=== PATIENT | female | born 1945 | race Caucasian/White ===

== ENCOUNTER 2018-01-22 16:38 | Inpatient (IN) | payer OTHER ==
[~2018-01-22] VITALS: Ht 152.4 cm; Wt 69.9 kg
--- NOTE | 2018-01-22 17:08 | PHYS DOC ---
Adult General HPI HPI Patient is a 72 year old female who presents to the ED for evaluation. Per EMS report pt arrived at [facility] yesterday and was "kicked out" pt denies any medical complaint. She is belligerent she is yelling. She refers to me as "little fucker" She is demanding that I get her an apartment. She admits to having no housing in . She was sent to [facility] from [facility]/ inpatient psych but is unable to provide any further insight into this. Review of Systems Review of Systems Patient refused to answer any of my ROS questions Current Medications Current Medications Current Medications Medications (Trade) Dose Ordered Sig/Denis Start Time Stop Time Status Last Admin Dose Admin Acetaminophen (Tylenol) 1,000 mg 1X ONCE 01/22/18 18:30 01/22/18 18:31 DC 01/22/18 18:26 1,000 MG Allergies Allergies Allergies Coded Allergies Type Severity Reaction Last Updated Verified No Known Drug Allergies 01/22/18 No Physical Exam Physical Exam Constitutional: Well developed, well nourished, HENT: Normocephalic, atraumatic, Eyes: PERRLA, Neck: Normal range of motion, no stridor. [] Cardiovascular:Heart rate regular rhythm, no murmur [] Lungs & Thorax: Bilateral breath sounds clear to auscultation [] Abdomen: Bowel sounds normal, soft, no tenderness, no masses, no pulsatile masses. [] Skin: Warm, dry, no erythema, no rash. [] Back: No tenderness, no CVA tenderness. [] Extremities: No tenderness, no cyanosis, no clubbing, ROM intact, no edema. [] Neurologic: Alert and oriented X 3, no focal deficits noted. [] Psychologic: Intermittently volatile and belligerent. Seems to have poor insight into consequences of choices. Current Patient Data Vital Signs Vital Signs Date Time Temp Pulse Resp B/P (MAP) Pulse Ox O2 Delivery O2 Flow Rate FiO2 01/22/18 18:00 76 20 158/102 (120) 96 Room Air 01/22/18 16:38 98.1 98.1 Lab Values Laboratory Tests Test 01/22/18 17:00 01/22/18 17:30 Urine Opiates Screen Neg (NEG) Urine Methadone Screen Neg (NEG) Urine Barbiturates Neg (NEG) Urine Phencyclidine Screen Neg (NEG) Urine Amphetamine/Methamphetamine Neg (NEG) Urine Benzodiazepines Screen Neg (NEG) Urine Cocaine Screen Neg (NEG) Urine Cannabinoids Screen Neg (NEG) Urine Ethyl Alcohol Neg (NEG) White Blood Count 9.3 x10^3/uL (4.0-11.0) Red Blood Count 3.84 x10^6/uL (3.50-5.40) Hemoglobin 11.9 g/dL (12.0-15.5) L Hematocrit 34.2 % (36.0-47.0) L Mean Corpuscular Volume 89 fL (79-100) Mean Corpuscular Hemoglobin 31 pg (25-35) Mean Corpuscular Hemoglobin Concent 35 g/dL (31-37) Red Cell Distribution Width 14.1 % (11.5-14.5) Platelet Count 287 x10^3/uL (140-400) Neutrophils (%) (Auto) 59 % (31-73) Lymphocytes (%) (Auto) 27 % (24-48) Monocytes (%) (Auto) 9 % (0-9) Eosinophils (%) (Auto) 4 % (0-3) H Basophils (%) (Auto) 1 % (0-3) Neutrophils # (Auto) 5.4 x10^3uL (1.8-7.7) Lymphocytes # (Auto) 2.5 x10^3/uL (1.0-4.8) Monocytes # (Auto) 0.9 x10^3/uL (0.0-1.1) Eosinophils # (Auto) 0.4 x10^3/uL (0.0-0.7) Basophils # (Auto) 0.1 x10^3/uL (0.0-0.2) Sodium Level 138 mmol/L (136-145) Potassium Level 3.5 mmol/L (3.5-5.1) Chloride Level 102 mmol/L (98-107) Carbon Dioxide Level 30 mmol/L (21-32) Anion Gap 6 (6-14) Blood Urea Nitrogen 29 mg/dL (7-20) H Creatinine 1.4 mg/dL (0.6-1.0) H Estimated GFR (Cockcroft-Gault) 36.9 BUN/Creatinine Ratio 21 (6-20) H Glucose Level 101 mg/dL (70-99) H Calcium Level 8.7 mg/dL (8.5-10.1) Total Bilirubin 0.2 mg/dL (0.2-1.0) Aspartate Amino Transferase (AST) 30 U/L (15-37) Alanine Aminotransferase (ALT) 48 U/L (14-59) Alkaline Phosphatase 84 U/L (46-116) Total Protein 6.9 g/dL (6.4-8.2) Albumin 3.2 g/dL (3.4-5.0) L Albumin/Globulin Ratio 0.9 (1.0-1.7) L Laboratory Tests 01/22/18 17:30 Laboratory Tests 01/22/18 17:30 EKG EKG [] Radiology/Procedures Radiology/Procedures [] Course & Med Decision Making Course & Med Decision Making Pertinent Labs and Imaging studies reviewed. (See chart for details) Pt evaluated in ED by Mildred with PAT team and Anisha with state evaluation. Pt difficult to determine clear disposition. She is alert and oriented x 3. She is intermittently confused and does not provide clear timeline as far as where she has lived in the past. She has no local resources and she denies having any significant resources in any other city. She was sent from [facility]/ to [facility]. On arrival there she was belligerent/non-compliant and refused to sign the admit paperwork. She was sent back to the ER. Pt has no medical complaints. She has been intermittently belligerent. She seems to have a component of splitting as she is polite with RN but refers to me as "little fucker". She has no medical reason for hospitalization. I spoke with [facility] and they are willing to have her back but she is refusing to go. Advised that I would need to discharge and she states that she will go to a residential. pt then demonstrated poor decision making when she was unable to answer questions regarding getting her clothes/belonging from the [place]. What she would do when she had to leave the residential tomorrow morning in the cold whether in her PJs. She is covering her eyes/ears in response to attempts to talkt o her. Mildred and Anisha evaluated the pt again. They will petition for involuntary placement. pt has very poor insight and is not safe to discharge to the streets/ residential. I feel that the pt has a waxing/waning capacity and questions whether she has the capacity to make decisions such as refusing to sign into a NH. Will admit pending evaluation by OSH for possible involuntary placement. Discussed with Dr. Mendoza who is agreeable to admission. Benny Disclaimer Benny Disclaimer This electronic medical record was generated, in whole or in part, using a voice recognition dictation system. Departure Departure Impression: Primary Impression: Mental health problem Additional Impression: Acute psychosis Disposition: ADMITTED INPATIENT Admitting Physician: Other Condition: GUARDED Additional Instructions: Thank you for coming to . Please repeat the attached handouts. Please follow-up with your primary care physician. Return to the ER if your symptoms worsen or you have any other concerns. Please follow-up with resources provided. Problem Qualifiers TYLER TERESA DO Jan 22, 2018 17:08
[2018-01-22 17:26] LABS: AMPHETAMINE/METHAMPHETAMINE NEG (NEG); BARBITURATES NEG (NEG); BENZODIAZEPINES NEG (NEG); CANNABINOIDS NEG (NEG); COCAINE NEG (NEG); METHADONE NEG (NEG); OPIATES NEG (NEG); PHENCYCLIDINE NEG (NEG)
[2018-01-22 17:39] LABS: BASO # 0.1 x10^3/uL (0.0-0.2); BASO % 1 % (0-3); EOS # 0.4 x10^3/uL (0.0-0.7); EOS % 4 % (0-3); HEMATOCRIT 34.2 % (36.0-47.0); HEMOGLOBIN 11.9 g/dL (12.0-15.5); LYMPH # 2.5 x10^3/uL (1.0-4.8); LYMPH % 27 % (24-48); MEAN CORPUSCULAR HEMOGLOBIN 31 pg (25-35); MEAN CORPUSCULAR HGB CONC 35 g/dL (31-37); MEAN CORPUSCULAR VOLUME 89 fL (79-100); MONO # 0.9 x10^3/uL (0.0-1.1); MONO % 9 % (0-9); NEUT # 5.4 x10^3uL (1.8-7.7); NEUT % 59 % (31-73); PLATELET COUNT 287 x10^3/uL (140-400); RED BLOOD COUNT 3.84 x10^6/uL (3.50-5.40); RED CELL DISTRIBUTION WIDTH 14.1 % (11.5-14.5); WHITE BLOOD COUNT 9.3 x10^3/uL (4.0-11.0)
[2018-01-22 17:49] LABS: CALCIUM 8.7 mg/dL (8.5-10.1); CREATININE 1.4 mg/dL (0.6-1.0); GFR 36.9; POTASSIUM 3.5 mmol/L (3.5-5.1)
[2018-01-22 17:57] LABS: ALBUMIN 3.2 g/dL (3.4-5.0); ALBUMIN/GLOBULIN RATIO 0.9 (1.0-1.7); TOTAL BILIRUBIN 0.2 mg/dL (0.2-1.0); TOTAL PROTEIN 6.9 g/dL (6.4-8.2)
[2018-01-22] MEDS ORDERED: ACETAMINOPHEN 500 MG TABLET PO ONE (18:30)
[2018-01-22] MEDS ORDERED: ACETAMINOPHEN 325 MG TABLET. PO ONE (23:15)
[2018-01-23 00:27] VITALS: BP 211/109
[2018-01-23] MEDS ORDERED: ARIP10TA9 PO (00:44)
[2018-01-23] MEDS ORDERED: BENZ1TAB5 PO (00:52)
[2018-01-23] MEDS ORDERED: LEVO50TA5 PO (00:52)
[2018-01-23] MEDS ORDERED: ASCO500T3 PO (00:52)
[2018-01-23] MEDS ORDERED: MAGN2400 PO (00:52)
[2018-01-23] MEDS ORDERED: MULT-460 PO (00:52)
[2018-01-23] MEDS ORDERED: LAMO200T3 PO (00:52)
[2018-01-23] MEDS ORDERED: LISI-338 PO (00:52)
[2018-01-23] MEDS ORDERED: ARIP2TAB3 PO (00:52)
[2018-01-23] MEDS ORDERED: OMEP40CA5 PO (00:52)
[2018-01-23] MEDS: ACETAMINOPHEN 325 MG TABLET. PO PRN ×3 (05:52→19:06)
--- NOTE | 2018-01-23 11:38 | PDOC1 ---
History and Physical Date of Admission Date of Admission DATE: 01/23/18 TIME: 11:37 Identification/Chief Complaint Chief Complaint 72 year old female who presents to the ED for evaluation. Per EMS report pt arrived at [facility] yesterday and was "kicked out" pt denies any medical complaint. She is belligerent she is yelling. She refers to me as "little fucker" She is demanding that I get her an apartment. She admits to having no housing in . She was sent to [facility] from [facility] inpatient psych Pt evaluated in ED by Mildred with PAT team and Anisha with state evaluation. Pt difficult to determine clear disposition. She is intermittently confused and does not provide clear timeline as far as where she has lived in the past. has no local resources and she denies having any significant resources in any other city. She was sent from [facility] to [facility] alf. On arrival there she was belligerent/non-compliant and refused to sign the admit paperwork. She was sent back to the ER. Pt has no medical complaints. She WAS belligerent NOW IS CALM . History of Present Illness History of Present Illness Per EMS report pt arrived at [facility] yesterday and was "kicked out" pt denies any medical complaint. She was belligerent she is yelling. prison refused to admit her yesterday Family History Family History: Hypertension Social History Smoke: No ALCOHOL: none Drugs: None Current Problem List Problem List Problems Medical Problems: (1) Acute psychosis Status: Acute (2) Mental health problem Status: Acute Current Medications Current Medications Current Medications Acetaminophen (Tylenol) 1,000 mg 1X ONCE PO Last administered on 01/22/18at 18: 26; Start 01/22/18 at 18:30; Stop 01/22/18 at 18:31; Status DC Acetaminophen (Tylenol) 650 mg 1X ONCE PO Last administered on 01/22/18at 23:20 ; Start 01/22/18 at 23:15; Stop 01/22/18 at 23:16; Status DC Influenza Virus Vaccine (Afluria Trivalent [id number] Syringe) 0.5 ml ONCE ONCE VAX IM Last administered on 01/23/18at 11:26; Start 01/23/18 at 09:00; Stop 01/23/18 at 09:01; Status DC Acetaminophen (Tylenol) 650 mg PRN Q6HRS PRN PO MILD PAIN / TEMP Last administered on 01/23/18at 11:23; Start 01/23/18 at 05:45 Active Scripts Active Reported Multiple Vitamin (Multivitamin With Minerals) 1 Each Tablet 1 Each PO DAILY Omeprazole 40 Mg Capsule.dr 1 Cap PO DAILY Milk Of Magnesia (Magnesium Hydroxide) 2,400 Mg/10 Ml Oral.susp 1,200 Mg PO PRN DAILY PRN Lisinopril 5 Mg Tablet 1 Tab PO DAILY Levothyroxine Sodium 50 Mcg Tablet 1 Tab PO DAILY Lamictal (Lamotrigine) 200 Mg Tablet 1 Tab PO DAILY Benztropine Mesylate 1 Mg Tablet 1 Mg PO DAILY Ascorbic Acid 500 Mg Tablet 1,000 Mg PO DAILY Abilify (Aripiprazole) 2 Mg Tablet 2 Mg PO DAILY Abilify (Aripiprazole) 10 Mg Tablet 10 Mg PO DAILY Allergies Allergies: Coded Allergies: No Known Drug Allergies (Unverified , 01/22/18) ROS General: No: Chills, Night Sweats, Fatigue, Malaise, Appetite, Other PSYCHOLOGICAL ROS: YES: Behavioral Disorder, Depression Eyes: No Blurry vision, No Decreased vision, No Double vision, No Dry eyes, No Excessive tearing, No Eye Pain, No Itchy Eyes, No Loss of vision, No Photophobia , No Scotomata, No Uses contacts, No Uses glasses, No Other HEENT: No: Heacaches, Visual Changes, Hearing change, Nasal congestion, Nasal discharge, Oral lesions, Sinus pain, Sore Throat, Epistaxis, Sneezing, Snoring, Tinnitus, Vertigo, Vocal changes, Other ALLERGY AND IMMUNOLOGY: No: Hives, Insect Bite Sensitivity, Itchy/Watery Eyes, Nasal Congestion, Post Nasal Drip, Seasonal Allergies, Other Breast: No New/Changing Breast Lumps, No Nipple changes, No Nipple discharge, No Other Cardiovascular: No Chest Pain, No Palpitations, No Orthopnea, No Paroxysmal Noc. Dyspnea, No Edema, No Lt Headedness, No Other Gastrointestinal: No Nausea, No Vomiting, No Abdominal Pain, No Diarrhea, No Constipation, No Melena, No Hematochezia, No Other Genitourinary: No Dysuria, No Frequency, No Incontinence, No Hematuria, No Retention, No Discharge, No Urgency, No Pain, No Flank Pain, No Other, No , No , No , No , No , No , No Musculoskeletal: Yes Joint Stiffness Neurological: Yes Behavorial Changes, Yes Confusion Vitals Vitals Vital Signs Date Time Temp Pulse Resp B/P (MAP) Pulse Ox O2 Delivery O2 Flow Rate FiO2 01/23/18 09:00 98.1 101 20 93 Room Air 98.1 Labs Labs Laboratory Tests Test 01/22/18 17:00 01/22/18 17:30 Urine Opiates Screen Neg (NEG) Urine Methadone Screen Neg (NEG) Urine Barbiturates Neg (NEG) Urine Phencyclidine Screen Neg (NEG) Urine Amphetamine/Methamphetamine Neg (NEG) Urine Benzodiazepines Screen Neg (NEG) Urine Cocaine Screen Neg (NEG) Urine Cannabinoids Screen Neg (NEG) Urine Ethyl Alcohol Neg (NEG) White Blood Count 9.3 x10^3/uL (4.0-11.0) Red Blood Count 3.84 x10^6/uL (3.50-5.40) Hemoglobin 11.9 g/dL (12.0-15.5) Hematocrit 34.2 % (36.0-47.0) Mean Corpuscular Volume 89 fL (79-100) Mean Corpuscular Hemoglobin 31 pg (25-35) Mean Corpuscular Hemoglobin Concent 35 g/dL (31-37) Red Cell Distribution Width 14.1 % (11.5-14.5) Platelet Count 287 x10^3/uL (140-400) Neutrophils (%) (Auto) 59 % (31-73) Lymphocytes (%) (Auto) 27 % (24-48) Monocytes (%) (Auto) 9 % (0-9) Eosinophils (%) (Auto) 4 % (0-3) Basophils (%) (Auto) 1 % (0-3) Neutrophils # (Auto) 5.4 x10^3uL (1.8-7.7) Lymphocytes # (Auto) 2.5 x10^3/uL (1.0-4.8) Monocytes # (Auto) 0.9 x10^3/uL (0.0-1.1) Eosinophils # (Auto) 0.4 x10^3/uL (0.0-0.7) Basophils # (Auto) 0.1 x10^3/uL (0.0-0.2) Sodium Level 138 mmol/L (136-145) Potassium Level 3.5 mmol/L (3.5-5.1) Chloride Level 102 mmol/L (98-107) Carbon Dioxide Level 30 mmol/L (21-32) Anion Gap 6 (6-14) Blood Urea Nitrogen 29 mg/dL (7-20) Creatinine 1.4 mg/dL (0.6-1.0) Estimated GFR (Cockcroft-Gault) 36.9 BUN/Creatinine Ratio 21 (6-20) Glucose Level 101 mg/dL (70-99) Calcium Level 8.7 mg/dL (8.5-10.1) Total Bilirubin 0.2 mg/dL (0.2-1.0) Aspartate Amino Transf (AST/SGOT) 30 U/L (15-37) Alanine Aminotransferase (ALT/SGPT) 48 U/L (14-59) Alkaline Phosphatase 84 U/L (46-116) Total Protein 6.9 g/dL (6.4-8.2) Albumin 3.2 g/dL (3.4-5.0) Albumin/Globulin Ratio 0.9 (1.0-1.7) Laboratory Tests Test 01/22/18 17:00 01/22/18 17:30 Urine Opiates Screen Neg (NEG) Urine Methadone Screen Neg (NEG) Urine Barbiturates Neg (NEG) Urine Phencyclidine Screen Neg (NEG) Urine Amphetamine/Methamphetamine Neg (NEG) Urine Benzodiazepines Screen Neg (NEG) Urine Cocaine Screen Neg (NEG) Urine Cannabinoids Screen Neg (NEG) Urine Ethyl Alcohol Neg (NEG) White Blood Count 9.3 x10^3/uL (4.0-11.0) Red Blood Count 3.84 x10^6/uL (3.50-5.40) Hemoglobin 11.9 g/dL (12.0-15.5) Hematocrit 34.2 % (36.0-47.0) Mean Corpuscular Volume 89 fL (79-100) Mean Corpuscular Hemoglobin 31 pg (25-35) Mean Corpuscular Hemoglobin Concent 35 g/dL (31-37) Red Cell Distribution Width 14.1 % (11.5-14.5) Platelet Count 287 x10^3/uL (140-400) Neutrophils (%) (Auto) 59 % (31-73) Lymphocytes (%) (Auto) 27 % (24-48) Monocytes (%) (Auto) 9 % (0-9) Eosinophils (%) (Auto) 4 % (0-3) Basophils (%) (Auto) 1 % (0-3) Neutrophils # (Auto) 5.4 x10^3uL (1.8-7.7) Lymphocytes # (Auto) 2.5 x10^3/uL (1.0-4.8) Monocytes # (Auto) 0.9 x10^3/uL (0.0-1.1) Eosinophils # (Auto) 0.4 x10^3/uL (0.0-0.7) Basophils # (Auto) 0.1 x10^3/uL (0.0-0.2) Sodium Level 138 mmol/L (136-145) Potassium Level 3.5 mmol/L (3.5-5.1) Chloride Level 102 mmol/L (98-107) Carbon Dioxide Level 30 mmol/L (21-32) Anion Gap 6 (6-14) Blood Urea Nitrogen 29 mg/dL (7-20) Creatinine 1.4 mg/dL (0.6-1.0) Estimated GFR (Cockcroft-Gault) 36.9 BUN/Creatinine Ratio 21 (6-20) Glucose Level 101 mg/dL (70-99) Calcium Level 8.7 mg/dL (8.5-10.1) Total Bilirubin 0.2 mg/dL (0.2-1.0) Aspartate Amino Transf (AST/SGOT) 30 U/L (15-37) Alanine Aminotransferase (ALT/SGPT) 48 U/L (14-59) Alkaline Phosphatase 84 U/L (46-116) Total Protein 6.9 g/dL (6.4-8.2) Albumin 3.2 g/dL (3.4-5.0) Albumin/Globulin Ratio 0.9 (1.0-1.7) VTE Prophylaxis Ordered VTE Prophylaxis Devices: Yes VTE Pharmacological Prophylaxi: Yes Assessment/Plan Assessment/Plan IMPRESSION 1. ACUTE ON CHRONIC PSYCHOSIS 2. NONCOMPLIANCE 3. SOCIAL PLACEMENT NEEDS, DIFFICULT PLAN CASE MGT HOME MEDS CT HEAD T4/TSH LAURY LOMBARDI MD Jan 23, 2018 11:37
[2018-01-23] MEDS ORDERED: MAGNESIUM HYDROXIDE 2,400 MG/30 ML ORAL.SUSP. PO PRN (17:15)
[2018-01-24] MEDS: ACETAMINOPHEN 325 MG TABLET. PO PRN ×3 (02:43→18:23)
[2018-01-24] MEDS: LEVOTHYROXINE 50 MCG TABLET PO SCH (05:13)
[2018-01-24 06:32] LABS: BASO % 1 % (0-3); EOS # 0.4 x10^3/uL (0.0-0.7); EOS % 4 % (0-3); HEMATOCRIT 38.5 % (36.0-47.0); HEMOGLOBIN 13.4 g/dL (12.0-15.5); LYMPH # 2.2 x10^3/uL (1.0-4.8); LYMPH % 23 % (24-48); MEAN CORPUSCULAR HEMOGLOBIN 31 pg (25-35); MEAN CORPUSCULAR HGB CONC 35 g/dL (31-37); MEAN CORPUSCULAR VOLUME 89 fL (79-100); MONO # 0.7 x10^3/uL (0.0-1.1); MONO % 7 % (0-9); NEUT # 6.5 x10^3uL (1.8-7.7); NEUT % 66 % (31-73); PLATELET COUNT 344 x10^3/uL (140-400); RED BLOOD COUNT 4.32 x10^6/uL (3.50-5.40); RED CELL DISTRIBUTION WIDTH 14.2 % (11.5-14.5); WHITE BLOOD COUNT 9.8 x10^3/uL (4.0-11.0)
[2018-01-24 06:46] LABS: ALBUMIN 3.6 g/dL (3.4-5.0); ALBUMIN/GLOBULIN RATIO 0.8 (1.0-1.7); CALCIUM 9.4 mg/dL (8.5-10.1); CREATININE 1.4 mg/dL (0.6-1.0); GFR 36.9; POTASSIUM 3.4 mmol/L (3.5-5.1); TOTAL BILIRUBIN 0.4 mg/dL (0.2-1.0); TOTAL PROTEIN 7.9 g/dL (6.4-8.2)
--- NOTE | 2018-01-24 08:40 | PDOC ---
PROGRESS NOTES History of Present Illness History of Present Illness Assessment/Plan Assessment/Plan IMPRESSION 1. ACUTE ON CHRONIC PSYCHOSIS 2. NONCOMPLIANCE 3. SOCIAL PLACEMENT NEEDS, DIFFICULT PLAN CASE MGT HOME MEDS CT HEAD T4/TSH Vitals Vitals Vital Signs Date Time Temp Pulse Resp B/P (MAP) Pulse Ox O2 Delivery O2 Flow Rate FiO2 01/24/18 07:00 98.0 116 18 92 Room Air 98.0 Physical Exam Physical Exam HENT: Normocephalic, atraumatic, Eyes: PERRLA, Neck: Normal range of motion, no stridor. [] Cardiovascular:Heart rate regular rhythm, no murmur [] Lungs & Thorax: Bilateral breath sounds clear to auscultation [] Abdomen: Bowel sounds normal, soft, no tenderness, no masses, no pulsatile masses. [] Skin: Warm, dry, no erythema, no rash. [] Back: No tenderness, no CVA tenderness. [] Extremities: No tenderness, no cyanosis, no clubbing, ROM intact, no edema. [] Neurologic: Alert and oriented X 3, no focal deficits noted. [] Psychologic: poor insight, calm with my exam. General: Cooperative, No acute distress Heart: Regular rate Lungs: Clear Abdomen: Normal bowel sounds, Soft, No hepatosplenomegaly Extremities: No cyanosis, No edema Labs LABS Laboratory Tests Test 01/24/18 06:00 White Blood Count 9.8 x10^3/uL (4.0-11.0) Red Blood Count 4.32 x10^6/uL (3.50-5.40) Hemoglobin 13.4 g/dL (12.0-15.5) Hematocrit 38.5 % (36.0-47.0) Mean Corpuscular Volume 89 fL (79-100) Mean Corpuscular Hemoglobin 31 pg (25-35) Mean Corpuscular Hemoglobin Concent 35 g/dL (31-37) Red Cell Distribution Width 14.2 % (11.5-14.5) Platelet Count 344 x10^3/uL (140-400) Neutrophils (%) (Auto) 66 % (31-73) Lymphocytes (%) (Auto) 23 % (24-48) Monocytes (%) (Auto) 7 % (0-9) Eosinophils (%) (Auto) 4 % (0-3) Basophils (%) (Auto) 1 % (0-3) Neutrophils # (Auto) 6.5 x10^3uL (1.8-7.7) Lymphocytes # (Auto) 2.2 x10^3/uL (1.0-4.8) Monocytes # (Auto) 0.7 x10^3/uL (0.0-1.1) Eosinophils # (Auto) 0.4 x10^3/uL (0.0-0.7) Basophils # (Auto) 0.0 x10^3/uL (0.0-0.2) Sodium Level 138 mmol/L (136-145) Potassium Level 3.4 mmol/L (3.5-5.1) Chloride Level 99 mmol/L (98-107) Carbon Dioxide Level 26 mmol/L (21-32) Anion Gap 13 (6-14) Blood Urea Nitrogen 25 mg/dL (7-20) Creatinine 1.4 mg/dL (0.6-1.0) Estimated GFR (Cockcroft-Gault) 36.9 BUN/Creatinine Ratio 18 (6-20) Glucose Level 121 mg/dL (70-99) Calcium Level 9.4 mg/dL (8.5-10.1) Total Bilirubin 0.4 mg/dL (0.2-1.0) Aspartate Amino Transf (AST/SGOT) 52 U/L (15-37) Alanine Aminotransferase (ALT/SGPT) 84 U/L (14-59) Alkaline Phosphatase 97 U/L (46-116) Total Protein 7.9 g/dL (6.4-8.2) Albumin 3.6 g/dL (3.4-5.0) Albumin/Globulin Ratio 0.8 (1.0-1.7) Assessment and Plan Assessmemt and Plan Problems Medical Problems: (1) Acute psychosis Status: Acute (2) Mental health problem Status: Acute Comment Review of Relevant I have reviewed the following items khushbu (where applicable) has been applied. Labs Laboratory Tests Test 01/22/18 17:00 01/22/18 17:30 01/24/18 06:00 Urine Opiates Screen Neg (NEG) Urine Methadone Screen Neg (NEG) Urine Barbiturates Neg (NEG) Urine Phencyclidine Screen Neg (NEG) Urine Amphetamine/Methamphetamine Neg (NEG) Urine Benzodiazepines Screen Neg (NEG) Urine Cocaine Screen Neg (NEG) Urine Cannabinoids Screen Neg (NEG) Urine Ethyl Alcohol Neg (NEG) White Blood Count 9.3 x10^3/uL (4.0-11.0) 9.8 x10^3/uL (4.0-11.0) Red Blood Count 3.84 x10^6/uL (3.50-5.40) 4.32 x10^6/uL (3.50-5.40) Hemoglobin 11.9 g/dL (12.0-15.5) 13.4 g/dL (12.0-15.5) Hematocrit 34.2 % (36.0-47.0) 38.5 % (36.0-47.0) Mean Corpuscular Volume 89 fL (79-100) 89 fL (79-100) Mean Corpuscular Hemoglobin 31 pg (25-35) 31 pg (25-35) Mean Corpuscular Hemoglobin Concent 35 g/dL (31-37) 35 g/dL (31-37) Red Cell Distribution Width 14.1 % (11.5-14.5) 14.2 % (11.5-14.5) Platelet Count 287 x10^3/uL (140-400) 344 x10^3/uL (140-400) Neutrophils (%) (Auto) 59 % (31-73) 66 % (31-73) Lymphocytes (%) (Auto) 27 % (24-48) 23 % (24-48) Monocytes (%) (Auto) 9 % (0-9) 7 % (0-9) Eosinophils (%) (Auto) 4 % (0-3) 4 % (0-3) Basophils (%) (Auto) 1 % (0-3) 1 % (0-3) Neutrophils # (Auto) 5.4 x10^3uL (1.8-7.7) 6.5 x10^3uL (1.8-7.7) Lymphocytes # (Auto) 2.5 x10^3/uL (1.0-4.8) 2.2 x10^3/uL (1.0-4.8) Monocytes # (Auto) 0.9 x10^3/uL (0.0-1.1) 0.7 x10^3/uL (0.0-1.1) Eosinophils # (Auto) 0.4 x10^3/uL (0.0-0.7) 0.4 x10^3/uL (0.0-0.7) Basophils # (Auto) 0.1 x10^3/uL (0.0-0.2) 0.0 x10^3/uL (0.0-0.2) Sodium Level 138 mmol/L (136-145) 138 mmol/L (136-145) Potassium Level 3.5 mmol/L (3.5-5.1) 3.4 mmol/L (3.5-5.1) Chloride Level 102 mmol/L (98-107) 99 mmol/L (98-107) Carbon Dioxide Level 30 mmol/L (21-32) 26 mmol/L (21-32) Anion Gap 6 (6-14) 13 (6-14) Blood Urea Nitrogen 29 mg/dL (7-20) 25 mg/dL (7-20) Creatinine 1.4 mg/dL (0.6-1.0) 1.4 mg/dL (0.6-1.0) Estimated GFR (Cockcroft-Gault) 36.9 36.9 BUN/Creatinine Ratio 21 (6-20) 18 (6-20) Glucose Level 101 mg/dL (70-99) 121 mg/dL (70-99) Calcium Level 8.7 mg/dL (8.5-10.1) 9.4 mg/dL (8.5-10.1) Total Bilirubin 0.2 mg/dL (0.2-1.0) 0.4 mg/dL (0.2-1.0) Aspartate Amino Transf (AST/SGOT) 30 U/L (15-37) 52 U/L (15-37) Alanine Aminotransferase (ALT/SGPT) 48 U/L (14-59) 84 U/L (14-59) Alkaline Phosphatase 84 U/L (46-116) 97 U/L (46-116) Total Protein 6.9 g/dL (6.4-8.2) 7.9 g/dL (6.4-8.2) Albumin 3.2 g/dL (3.4-5.0) 3.6 g/dL (3.4-5.0) Albumin/Globulin Ratio 0.9 (1.0-1.7) 0.8 (1.0-1.7) Thyroid Stimulating Hormone (TSH) 1.440 uIU/mL (0.358-3.74) Free Thyroxine 1.24 ng/dL (0.76-1.46) Laboratory Tests Test 01/24/18 06:00 White Blood Count 9.8 x10^3/uL (4.0-11.0) Red Blood Count 4.32 x10^6/uL (3.50-5.40) Hemoglobin 13.4 g/dL (12.0-15.5) Hematocrit 38.5 % (36.0-47.0) Mean Corpuscular Volume 89 fL (79-100) Mean Corpuscular Hemoglobin 31 pg (25-35) Mean Corpuscular Hemoglobin Concent 35 g/dL (31-37) Red Cell Distribution Width 14.2 % (11.5-14.5) Platelet Count 344 x10^3/uL (140-400) Neutrophils (%) (Auto) 66 % (31-73) Lymphocytes (%) (Auto) 23 % (24-48) Monocytes (%) (Auto) 7 % (0-9) Eosinophils (%) (Auto) 4 % (0-3) Basophils (%) (Auto) 1 % (0-3) Neutrophils # (Auto) 6.5 x10^3uL (1.8-7.7) Lymphocytes # (Auto) 2.2 x10^3/uL (1.0-4.8) Monocytes # (Auto) 0.7 x10^3/uL (0.0-1.1) Eosinophils # (Auto) 0.4 x10^3/uL (0.0-0.7) Basophils # (Auto) 0.0 x10^3/uL (0.0-0.2) Sodium Level 138 mmol/L (136-145) Potassium Level 3.4 mmol/L (3.5-5.1) Chloride Level 99 mmol/L (98-107) Carbon Dioxide Level 26 mmol/L (21-32) Anion Gap 13 (6-14) Blood Urea Nitrogen 25 mg/dL (7-20) Creatinine 1.4 mg/dL (0.6-1.0) Estimated GFR (Cockcroft-Gault) 36.9 BUN/Creatinine Ratio 18 (6-20) Glucose Level 121 mg/dL (70-99) Calcium Level 9.4 mg/dL (8.5-10.1) Total Bilirubin 0.4 mg/dL (0.2-1.0) Aspartate Amino Transf (AST/SGOT) 52 U/L (15-37) Alanine Aminotransferase (ALT/SGPT) 84 U/L (14-59) Alkaline Phosphatase 97 U/L (46-116) Total Protein 7.9 g/dL (6.4-8.2) Albumin 3.6 g/dL (3.4-5.0) Albumin/Globulin Ratio 0.8 (1.0-1.7) Medications Current Medications Acetaminophen (Tylenol) 1,000 mg 1X ONCE PO Last administered on 01/22/18at 18: 26; Start 01/22/18 at 18:30; Stop 01/22/18 at 18:31; Status DC Acetaminophen (Tylenol) 650 mg 1X ONCE PO Last administered on 01/22/18at 23:20 ; Start 01/22/18 at 23:15; Stop 01/22/18 at 23:16; Status DC Influenza Virus Vaccine (Afluria Trivalent [id number] Syringe) 0.5 ml ONCE ONCE VAX IM Last administered on 01/23/18at 11:26; Start 01/23/18 at 09:00; Stop 01/23/18 at 09:01; Status DC Acetaminophen (Tylenol) 650 mg PRN Q6HRS PRN PO MILD PAIN / TEMP Last administered on 01/24/18at 02:43; Start 01/23/18 at 05:45 Ascorbic Acid (Vitamin C) 1,000 mg DAILY PO ; Start 01/24/18 at 09:00 Aripiprazole (Abilify) 2 mg DAILY PO ; Start 01/24/18 at 09:00 Aripiprazole (Abilify) 10 mg DAILY PO ; Start 01/24/18 at 09:00 Benztropine Mesylate (Cogentin) 1 mg DAILY PO ; Start 01/24/18 at 09:00 Lamotrigine (LaMICtal) 200 mg DAILY PO ; Start 01/24/18 at 09:00 Levothyroxine Sodium (Synthroid) 50 mcg DAILY06 PO Last administered on at 05:13; Start 01/24/18 at 06:00 Lisinopril (Prinivil) 5 mg DAILY PO ; Start 01/24/18 at 09:00 Magnesium Hydroxide (Milk Of Magnesia) 2,400 mg PRN DAILY PRN PO CONSTIPATION; Start 01/23/18 at 17:15 Multivitamins (Thera M Plus) 1 tab DAILY PO ; Start 01/24/18 at 09:00 Pantoprazole Sodium (Protonix) 40 mg DAILYAC PO ; Start 01/24/18 at 07:30 Active Scripts Active Reported Multiple Vitamin (Multivitamin With Minerals) 1 Each Tablet 1 Each PO DAILY Omeprazole 40 Mg Capsule.dr 1 Cap PO DAILY Milk Of Magnesia (Magnesium Hydroxide) 2,400 Mg/10 Ml Oral.susp 1,200 Mg PO PRN DAILY PRN Lisinopril 5 Mg Tablet 1 Tab PO DAILY Levothyroxine Sodium 50 Mcg Tablet 1 Tab PO DAILY Lamictal (Lamotrigine) 200 Mg Tablet 1 Tab PO DAILY Benztropine Mesylate 1 Mg Tablet 1 Mg PO DAILY Ascorbic Acid 500 Mg Tablet 1,000 Mg PO DAILY Abilify (Aripiprazole) 2 Mg Tablet 2 Mg PO DAILY Abilify (Aripiprazole) 10 Mg Tablet 10 Mg PO DAILY Vitals/I & O Vital Sign - Last 24 Hours 01/23/18 01/23/18 01/23/18 01/24/18 09:00 19:00 20:00 03:00 Temp 98.1 98.4 97.9 98.1 98.4 97.9 Pulse 101 84 81 Resp 20 20 20 B/P (MAP) Pulse Ox 93 92 93 O2 Delivery Room Air Room Air Room Air Room Air 01/24/18 07:00 Temp 98.0 98.0 Pulse 116 Resp 18 B/P (MAP) Pulse Ox 92 O2 Delivery Room Air Intake and Output 01/23/18 01/23/18 01/24/18 15:00 23:00 07:00 Intake Total 120 ml 1300 ml 700 ml Balance 120 ml 1300 ml 700 ml LAURY LOMBARDI MD Jan 24, 2018 08:40
[2018-01-24] MEDS: lamoTRIgine 100 MG TABLET. PO SCH (09:00)
[2018-01-24] MEDS: MULTIVITAMIN with MINERAL TABLET. PO SCH (09:00)
[2018-01-24] MEDS: BENZTROPINE MESYLATE 1 MG TABLET. PO SCH (09:00)
[2018-01-24] MEDS: PANTOPRAZOLE 40 MG TABLET.DR. PO SCH (09:34)
[2018-01-24] MEDS: ARIPiprazole 5 MG TABLET PO SCH (09:36)
[2018-01-24] MEDS: ARIPiprazole 2 MG TABLET PO SCH (09:37)
[2018-01-24] MEDS: ASCORBIC ACID 500 MG TABLET PO SCH (09:37)
[2018-01-24] MEDS: LISINOPRIL 5 MG TABLET. PO SCH (09:39)
--- NOTE | 2018-01-24 11:16 | RAD ---
EXAM: CHEST 1 VIEW History: Chest pain COMPARISON: None available. TECHNIQUE: Single portable radiograph of the chest FINDINGS: The cardiac silhouette is unremarkable. The lungs are clear bilaterally. The costophrenic sulci are clear and well demarcated. IMPRESSION: No radiographic evidence of an acute cardiopulmonary process. Electronically signed by: Rogelio Dubose MD (01/24/2018 11:13 AM) [facility]
[2018-01-25] MEDS: ACETAMINOPHEN 325 MG TABLET. PO PRN ×2 (00:37→14:58)
[2018-01-25] MEDS: LEVOTHYROXINE 50 MCG TABLET PO SCH (06:45)
[2018-01-25] MEDS: BENZTROPINE MESYLATE 1 MG TABLET. PO SCH ×2 (09:00→09:16)
[2018-01-25] MEDS: lamoTRIgine 100 MG TABLET. PO SCH ×2 (09:00→09:17)
[2018-01-25] MEDS: LISINOPRIL 5 MG TABLET. PO SCH (09:00)
[2018-01-25] MEDS: MULTIVITAMIN with MINERAL TABLET. PO SCH ×2 (09:00→09:17)
[2018-01-25] MEDS: ASCORBIC ACID 500 MG TABLET PO SCH (09:16)
[2018-01-25] MEDS: PANTOPRAZOLE 40 MG TABLET.DR. PO SCH (09:17)
--- NOTE | 2018-01-25 09:19 | PDOC ---
PROGRESS NOTES History of Present Illness History of Present Illness Assessment/Plan Assessment/Plan IMPRESSION 1. ACUTE ON CHRONIC PSYCHOSIS 2. NONCOMPLIANCE 3. SOCIAL PLACEMENT NEEDS, DIFFICULT 4. HYPOKALEMIA, ON REPLACEMENT PLAN CASE MGT HOME MEDS CT HEAD PENDING T4/TSH SQ LOVENOX DVT PROPHYLAXIS Vitals Vitals Vital Signs Date Time Temp Pulse Resp B/P (MAP) Pulse Ox O2 Delivery O2 Flow Rate FiO2 01/24/18 20:00 Room Air 01/24/18 15:00 98.3 86 16 95 98.3 Physical Exam Physical Exam HENT: Normocephalic, atraumatic, Eyes: PERRLA, Neck: Normal range of motion, no stridor. [] Cardiovascular:Heart rate regular rhythm, no murmur [] Lungs & Thorax: Bilateral breath sounds clear to auscultation [] Abdomen: Bowel sounds normal, soft, no tenderness, no masses, no pulsatile masses. [] Skin: Warm, dry, no erythema, no rash. [] Back: No tenderness, no CVA tenderness. [] Extremities: No tenderness, no cyanosis, no clubbing, ROM intact, no edema. [] Neurologic: Alert and oriented X 3, no focal deficits noted. [] Psychologic: poor insight, calm with my exam. General: Alert, Cooperative, No acute distress Heart: Regular rate, Normal S1 Lungs: Clear Abdomen: Normal bowel sounds, Soft, No hepatosplenomegaly Extremities: No cyanosis, No edema, Normal pulses Skin: No significant lesion Assessment and Plan Assessmemt and Plan Problems Medical Problems: (1) Acute psychosis Status: Acute (2) Mental health problem Status: Acute Comment Review of Relevant I have reviewed the following items khushbu (where applicable) has been applied. Labs Laboratory Tests Test 01/24/18 06:00 White Blood Count 9.8 x10^3/uL (4.0-11.0) Red Blood Count 4.32 x10^6/uL (3.50-5.40) Hemoglobin 13.4 g/dL (12.0-15.5) Hematocrit 38.5 % (36.0-47.0) Mean Corpuscular Volume 89 fL (79-100) Mean Corpuscular Hemoglobin 31 pg (25-35) Mean Corpuscular Hemoglobin Concent 35 g/dL (31-37) Red Cell Distribution Width 14.2 % (11.5-14.5) Platelet Count 344 x10^3/uL (140-400) Neutrophils (%) (Auto) 66 % (31-73) Lymphocytes (%) (Auto) 23 % (24-48) Monocytes (%) (Auto) 7 % (0-9) Eosinophils (%) (Auto) 4 % (0-3) Basophils (%) (Auto) 1 % (0-3) Neutrophils # (Auto) 6.5 x10^3uL (1.8-7.7) Lymphocytes # (Auto) 2.2 x10^3/uL (1.0-4.8) Monocytes # (Auto) 0.7 x10^3/uL (0.0-1.1) Eosinophils # (Auto) 0.4 x10^3/uL (0.0-0.7) Basophils # (Auto) 0.0 x10^3/uL (0.0-0.2) Sodium Level 138 mmol/L (136-145) Potassium Level 3.4 mmol/L (3.5-5.1) Chloride Level 99 mmol/L (98-107) Carbon Dioxide Level 26 mmol/L (21-32) Anion Gap 13 (6-14) Blood Urea Nitrogen 25 mg/dL (7-20) Creatinine 1.4 mg/dL (0.6-1.0) Estimated GFR (Cockcroft-Gault) 36.9 BUN/Creatinine Ratio 18 (6-20) Glucose Level 121 mg/dL (70-99) Calcium Level 9.4 mg/dL (8.5-10.1) Total Bilirubin 0.4 mg/dL (0.2-1.0) Aspartate Amino Transf (AST/SGOT) 52 U/L (15-37) Alanine Aminotransferase (ALT/SGPT) 84 U/L (14-59) Alkaline Phosphatase 97 U/L (46-116) Total Protein 7.9 g/dL (6.4-8.2) Albumin 3.6 g/dL (3.4-5.0) Albumin/Globulin Ratio 0.8 (1.0-1.7) Medications Current Medications Acetaminophen (Tylenol) 1,000 mg 1X ONCE PO Last administered on 01/22/18at 18: 26; Start 01/22/18 at 18:30; Stop 01/22/18 at 18:31; Status DC Acetaminophen (Tylenol) 650 mg 1X ONCE PO Last administered on 01/22/18at 23:20 ; Start 01/22/18 at 23:15; Stop 01/22/18 at 23:16; Status DC Influenza Virus Vaccine (Afluria Trivalent [id number] Syringe) 0.5 ml ONCE ONCE VAX IM Last administered on 01/23/18at 11:26; Start 01/23/18 at 09:00; Stop 01/23/18 at 09:01; Status DC Acetaminophen (Tylenol) 650 mg PRN Q6HRS PRN PO MILD PAIN / TEMP Last administered on 01/25/18at 00:37; Start 01/23/18 at 05:45 Ascorbic Acid (Vitamin C) 1,000 mg DAILY PO Last administered on 01/25/18 09: 16; Start 01/24/18 at 09:00 Aripiprazole (Abilify) 2 mg DAILY PO Last administered on 01/24/18at 09:37; Start 01/24/18 at 09:00 Aripiprazole (Abilify) 10 mg DAILY PO Last administered on 01/24/18at 09:36; Start 01/24/18 at 09:00 Benztropine Mesylate (Cogentin) 1 mg DAILY PO Last administered on 01/25/18 09 :16; Start 01/24/18 at 09:00 Lamotrigine (LaMICtal) 200 mg DAILY PO Last administered on 01/25/18 09:17; Start 01/24/18 at 09:00 Levothyroxine Sodium (Synthroid) 50 mcg DAILY06 PO Last administered on at 06:45; Start 01/24/18 at 06:00 Lisinopril (Prinivil) 5 mg DAILY PO Last administered on 01/24/18at 09:39; Start 01/24/18 at 09:00 Magnesium Hydroxide (Milk Of Magnesia) 2,400 mg PRN DAILY PRN PO CONSTIPATION; Start 01/23/18 at 17:15 Multivitamins (Thera M Plus) 1 tab DAILY PO Last administered on 01/25/18 09: 17; Start 01/24/18 at 09:00 Pantoprazole Sodium (Protonix) 40 mg DAILYAC PO Last administered on 11/4/18at 09:17; Start 01/24/18 at 07:30 Active Scripts Active Reported Multiple Vitamin (Multivitamin With Minerals) 1 Each Tablet 1 Each PO DAILY Omeprazole 40 Mg Capsule.dr 1 Cap PO DAILY Milk Of Magnesia (Magnesium Hydroxide) 2,400 Mg/10 Ml Oral.susp 1,200 Mg PO PRN DAILY PRN Lisinopril 5 Mg Tablet 1 Tab PO DAILY Levothyroxine Sodium 50 Mcg Tablet 1 Tab PO DAILY Lamictal (Lamotrigine) 200 Mg Tablet 1 Tab PO DAILY Benztropine Mesylate 1 Mg Tablet 1 Mg PO DAILY Ascorbic Acid 500 Mg Tablet 1,000 Mg PO DAILY Abilify (Aripiprazole) 2 Mg Tablet 2 Mg PO DAILY Abilify (Aripiprazole) 10 Mg Tablet 10 Mg PO DAILY Vitals/I & O Vital Sign - Last 24 Hours 01/24/18 01/24/18 01/24/18 01/24/18 09:39 11:00 15:00 20:00 Temp 98.6 98.3 98.6 98.3 Pulse 116 100 86 Resp 18 16 B/P (MAP) 211/109 Pulse Ox 93 95 O2 Delivery Room Air Room Air Room Air Intake and Output 01/24/18 01/24/18 01/25/18 15:00 23:00 07:00 Intake Total 380 ml 240 ml Output Total 0 ml Balance 380 ml 240 ml 0 ml LAURY LOMBARDI MD Jan 25, 2018 09:19
[2018-01-25] MEDS: ARIPiprazole 5 MG TABLET PO SCH (09:25)
[2018-01-25] MEDS: ARIPiprazole 2 MG TABLET PO SCH (09:25)
[2018-01-25] MEDS ORDERED: POTASSIUM CHLORIDE 20 MEQ TABLET.ER. PO ONE (16:00)
[2018-01-26] MEDS: LEVOTHYROXINE 50 MCG TABLET PO SCH (05:02)
[2018-01-26] MEDS: ACETAMINOPHEN 325 MG TABLET. PO PRN ×2 (05:02→11:24)
[2018-01-26 05:52] LABS: BASO % 0 % (0-3); EOS # 0.5 x10^3/uL (0.0-0.7); EOS % 5 % (0-3); HEMATOCRIT 35.2 % (36.0-47.0); HEMOGLOBIN 12.1 g/dL (12.0-15.5); LYMPH # 1.8 x10^3/uL (1.0-4.8); LYMPH % 19 % (24-48); MEAN CORPUSCULAR HEMOGLOBIN 31 pg (25-35); MEAN CORPUSCULAR HGB CONC 34 g/dL (31-37); MEAN CORPUSCULAR VOLUME 90 fL (79-100); MONO # 0.8 x10^3/uL (0.0-1.1); MONO % 9 % (0-9); NEUT # 6.4 x10^3uL (1.8-7.7); NEUT % 67 % (31-73); PLATELET COUNT 313 x10^3/uL (140-400); RED BLOOD COUNT 3.94 x10^6/uL (3.50-5.40); RED CELL DISTRIBUTION WIDTH 14.5 % (11.5-14.5); WHITE BLOOD COUNT 9.5 x10^3/uL (4.0-11.0)
[2018-01-26 06:14] LABS: ALBUMIN 3.2 g/dL (3.4-5.0); ALBUMIN/GLOBULIN RATIO 0.8 (1.0-1.7); CALCIUM 9.2 mg/dL (8.5-10.1); CREATININE 1.3 mg/dL (0.6-1.0); GFR 40.2; POTASSIUM 4.4 mmol/L (3.5-5.1); TOTAL BILIRUBIN 0.2 mg/dL (0.2-1.0); TOTAL PROTEIN 7.1 g/dL (6.4-8.2)
[2018-01-26] MEDS ORDERED: POTASSIUM CHLORIDE 20 MEQ TABLET.ER. PO SCH (08:00)
[2018-01-26] MEDS: PANTOPRAZOLE 40 MG TABLET.DR. PO SCH (08:42)
[2018-01-26] MEDS: ARIPiprazole 2 MG TABLET PO SCH (08:43)
[2018-01-26] MEDS: ARIPiprazole 5 MG TABLET PO SCH (08:44)
[2018-01-26] MEDS: ASCORBIC ACID 500 MG TABLET PO SCH (08:45)
[2018-01-26] MEDS: BENZTROPINE MESYLATE 1 MG TABLET. PO SCH ×2 (08:46→08:49)
[2018-01-26 08:49] VITALS: BP 211/109
[2018-01-26] MEDS: LISINOPRIL 5 MG TABLET. PO SCH (08:49)
[2018-01-26] MEDS: lamoTRIgine 100 MG TABLET. PO SCH (08:49)
[2018-01-26] MEDS: MULTIVITAMIN with MINERAL TABLET. PO SCH (08:49)
[2018-01-26] MEDS ORDERED: traMADol 50 MG TABLET PO PRN (12:00)
--- NOTE | 2018-01-26 12:47 | PDOC3 ---
Discharge Summary Date of Admission: Jan 23, 2018 Date of Discharge: Jan 26, 2018 Follow-Up: 1-2 days Admitting Diagnosis comment: DISCHARGE DX ===== Assessment/Plan IMPRESSION 1. ACUTE ON CHRONIC PSYCHOSIS 2. NONCOMPLIANCE 3. SOCIAL PLACEMENT NEEDS, DIFFICULT CHOSES TO GO TO [facility], REFUSED SNF PLACEMENT 4. HYPOKALEMIA, ON REPLACEMENT PLAN CASE MGT HOME MEDS CT HEAD NOTED T4/TSH OK Vitals Vitals Vital Signs Date Time Temp Pulse Resp B/P (MAP) Pulse Ox O2 Delivery O2 Flow Rate FiO2 01/24/18 20:00 Room Air 01/24/18 15:00 98.3 86 16 95 98.3 Physical Exam Physical Exam HENT: Normocephalic, atraumatic, Eyes: PERRLA, Neck: Normal range of motion, no stridor. [] Cardiovascular:Heart rate regular rhythm, no murmur [] Lungs & Thorax: Bilateral breath sounds clear to auscultation [] Abdomen: Bowel sounds normal, soft, no tenderness, no masses, no pulsatile masses. [] Skin: Warm, dry, no erythema, no rash. [] Back: No tenderness, no CVA tenderness. [] Extremities: No tenderness, no cyanosis, no clubbing, ROM intact, no edema. [] Neurologic: Alert and oriented X 3, no focal deficits noted. [] Psychologic: poor insight, calm with my exam. General: Alert, Cooperative, No acute distress Heart: Regular rate, Normal S1 Lungs: Clear Abdomen: Normal bowel sounds, Soft, No hepatosplenomegaly Extremities: No cyanosis, No edema, Normal pulses Skin: No significant lesion FINAL DIAGNOSIS Problems Medical Problems: (1) Acute psychosis Status: Acute (2) Mental health problem Status: Acute Brief Hospital Course Ms. Geronimo is a 72 old [sex] who presented with [ ] CONDITION AT DISCHARGE: Comment ([facility]) Discharge Medications Current Medications Acetaminophen (Tylenol) 1,000 mg 1X ONCE PO Last administered on 01/22/18at 18: 26; Start 01/22/18 at 18:30; Stop 01/22/18 at 18:31; Status DC Acetaminophen (Tylenol) 650 mg 1X ONCE PO Last administered on 01/22/18at 23:20 ; Start 01/22/18 at 23:15; Stop 01/22/18 at 23:16; Status DC Influenza Virus Vaccine (Afluria Trivalent [id number] Syringe) 0.5 ml ONCE ONCE VAX IM Last administered on 01/23/18at 11:26; Start 01/23/18 at 09:00; Stop 01/23/18 at 09:01; Status DC Acetaminophen (Tylenol) 650 mg PRN Q6HRS PRN PO MILD PAIN / TEMP Last administered on 01/26/18at 11:24; Start 01/23/18 at 05:45 Ascorbic Acid (Vitamin C) 1,000 mg DAILY PO Last administered on 01/26/18 08: 45; Start 01/24/18 at 09:00 Aripiprazole (Abilify) 2 mg DAILY PO Last administered on 01/26/18 08:43; Start 01/24/18 at 09:00 Aripiprazole (Abilify) 10 mg DAILY PO Last administered on 01/26/18at 08:44; Start 01/24/18 at 09:00 Benztropine Mesylate (Cogentin) 1 mg DAILY PO ; Start 01/24/18 at 09:00 Lamotrigine (LaMICtal) 200 mg DAILY PO ; Start 01/24/18 at 09:00 Levothyroxine Sodium (Synthroid) 50 mcg DAILY06 PO Last administered on at 05:02; Start 01/24/18 at 06:00 Lisinopril (Prinivil) 5 mg DAILY PO Last administered on 01/26/18at 08:49; Start 01/24/18 at 09:00 Magnesium Hydroxide (Milk Of Magnesia) 2,400 mg PRN DAILY PRN PO CONSTIPATION; Start 01/23/18 at 17:15 Multivitamins (Thera M Plus) 1 tab DAILY PO ; Start 01/24/18 at 09:00 Pantoprazole Sodium (Protonix) 40 mg DAILYAC PO Last administered on 01/26/18at 08:42; Start 01/24/18 at 07:30 Potassium Chloride (Klor-Con) 40 meq 1X ONCE PO Last administered on at 16:00; Start 01/25/18 at 16:00; Stop 01/25/18 at 16:01; Status DC Potassium Chloride (Klor-Con) 20 meq DAILYWBKFT PO Last administered on 11/5/ 18at 08:46; Start 01/26/18 at 08:00 Tramadol HCl (Ultram) 50 mg PRN Q6HRS PRN PO MILD TO MODERATE PAIN Last administered on 01/26/18at 12:02; Start 01/26/18 at 12:00 Active Scripts Active Reported Multiple Vitamin (Multivitamin With Minerals) 1 Each Tablet 1 Each PO DAILY Omeprazole 40 Mg Capsule.dr 1 Cap PO DAILY Milk Of Magnesia (Magnesium Hydroxide) 2,400 Mg/10 Ml Oral.susp 1,200 Mg PO PRN DAILY PRN Lisinopril 5 Mg Tablet 1 Tab PO DAILY Levothyroxine Sodium 50 Mcg Tablet 1 Tab PO DAILY Lamictal (Lamotrigine) 200 Mg Tablet 1 Tab PO DAILY Benztropine Mesylate 1 Mg Tablet 1 Mg PO DAILY Ascorbic Acid 500 Mg Tablet 1,000 Mg PO DAILY Abilify (Aripiprazole) 2 Mg Tablet 2 Mg PO DAILY Abilify (Aripiprazole) 10 Mg Tablet 10 Mg PO DAILY Vital Signs Vital Signs Date Time Temp Pulse Resp B/P (MAP) Pulse Ox O2 Delivery O2 Flow Rate FiO2 01/26/18 12:02 Room Air 01/26/18 08:49 86 211/109 Labs Laboratory Tests Test 01/26/18 05:05 White Blood Count 9.5 x10^3/uL (4.0-11.0) Red Blood Count 3.94 x10^6/uL (3.50-5.40) Hemoglobin 12.1 g/dL (12.0-15.5) Hematocrit 35.2 % (36.0-47.0) Mean Corpuscular Volume 90 fL (79-100) Mean Corpuscular Hemoglobin 31 pg (25-35) Mean Corpuscular Hemoglobin Concent 34 g/dL (31-37) Red Cell Distribution Width 14.5 % (11.5-14.5) Platelet Count 313 x10^3/uL (140-400) Neutrophils (%) (Auto) 67 % (31-73) Lymphocytes (%) (Auto) 19 % (24-48) Monocytes (%) (Auto) 9 % (0-9) Eosinophils (%) (Auto) 5 % (0-3) Basophils (%) (Auto) 0 % (0-3) Neutrophils # (Auto) 6.4 x10^3uL (1.8-7.7) Lymphocytes # (Auto) 1.8 x10^3/uL (1.0-4.8) Monocytes # (Auto) 0.8 x10^3/uL (0.0-1.1) Eosinophils # (Auto) 0.5 x10^3/uL (0.0-0.7) Basophils # (Auto) 0.0 x10^3/uL (0.0-0.2) Sodium Level 140 mmol/L (136-145) Potassium Level 4.4 mmol/L (3.5-5.1) Chloride Level 103 mmol/L (98-107) Carbon Dioxide Level 27 mmol/L (21-32) Anion Gap 10 (6-14) Blood Urea Nitrogen 27 mg/dL (7-20) Creatinine 1.3 mg/dL (0.6-1.0) Estimated GFR (Cockcroft-Gault) 40.2 BUN/Creatinine Ratio 21 (6-20) Glucose Level 90 mg/dL (70-99) Calcium Level 9.2 mg/dL (8.5-10.1) Total Bilirubin 0.2 mg/dL (0.2-1.0) Aspartate Amino Transf (AST/SGOT) 23 U/L (15-37) Alanine Aminotransferase (ALT/SGPT) 55 U/L (14-59) Alkaline Phosphatase 92 U/L (46-116) Total Protein 7.1 g/dL (6.4-8.2) Albumin 3.2 g/dL (3.4-5.0) Albumin/Globulin Ratio 0.8 (1.0-1.7) Laboratory Tests Test 01/26/18 05:05 White Blood Count 9.5 x10^3/uL (4.0-11.0) Red Blood Count 3.94 x10^6/uL (3.50-5.40) Hemoglobin 12.1 g/dL (12.0-15.5) Hematocrit 35.2 % (36.0-47.0) Mean Corpuscular Volume 90 fL (79-100) Mean Corpuscular Hemoglobin 31 pg (25-35) Mean Corpuscular Hemoglobin Concent 34 g/dL (31-37) Red Cell Distribution Width 14.5 % (11.5-14.5) Platelet Count 313 x10^3/uL (140-400) Neutrophils (%) (Auto) 67 % (31-73) Lymphocytes (%) (Auto) 19 % (24-48) Monocytes (%) (Auto) 9 % (0-9) Eosinophils (%) (Auto) 5 % (0-3) Basophils (%) (Auto) 0 % (0-3) Neutrophils # (Auto) 6.4 x10^3uL (1.8-7.7) Lymphocytes # (Auto) 1.8 x10^3/uL (1.0-4.8) Monocytes # (Auto) 0.8 x10^3/uL (0.0-1.1) Eosinophils # (Auto) 0.5 x10^3/uL (0.0-0.7) Basophils # (Auto) 0.0 x10^3/uL (0.0-0.2) Sodium Level 140 mmol/L (136-145) Potassium Level 4.4 mmol/L (3.5-5.1) Chloride Level 103 mmol/L (98-107) Carbon Dioxide Level 27 mmol/L (21-32) Anion Gap 10 (6-14) Blood Urea Nitrogen 27 mg/dL (7-20) Creatinine 1.3 mg/dL (0.6-1.0) Estimated GFR (Cockcroft-Gault) 40.2 BUN/Creatinine Ratio 21 (6-20) Glucose Level 90 mg/dL (70-99) Calcium Level 9.2 mg/dL (8.5-10.1) Total Bilirubin 0.2 mg/dL (0.2-1.0) Aspartate Amino Transf (AST/SGOT) 23 U/L (15-37) Alanine Aminotransferase (ALT/SGPT) 55 U/L (14-59) Alkaline Phosphatase 92 U/L (46-116) Total Protein 7.1 g/dL (6.4-8.2) Albumin 3.2 g/dL (3.4-5.0) Albumin/Globulin Ratio 0.8 (1.0-1.7) Allergies Allergies Coded Allergies Type Severity Reaction Last Updated Verified No Known Drug Allergies 01/22/18 No Disposition/Orders: Other (AMA) Patient Instructions D/C PLANNING 30 MIN LAURY LOMBARDI MD Jan 26, 2018 12:47
--- NOTE | 2018-01-26 12:48 | DISCH ---
DISCHARGE INSTRUCTIONS Condition on Discharge Condition on Discharge: Guarded Activity After Discharge Activity Instructions for Disc: Resume previous activity Exercise Instruction after Dis: Walk 10 min, 3 x per day Driving Instructions after Dis: Do not drive Weight Bearing Status after Di: Full weight bearing Diet after Discharge Diet after Discharge: Cardiac Contacting the DR. after DC Call your doctor for: If your condition worsens LAURY LOMBARDI MD Jan 26, 2018 12:48
== END 2018-01-26 16:40 | disposition left against medical advice (07) | DRG 641 ==
LOC: ER 16:38 → 5 SOUTH 21:01
PROVIDERS: ADMIT Internal Medicine; ATTEND Internal Medicine
DX: E87.6 Hypokalemia (principal); F23 Brief psychotic disorder; Z53.21 Procedure and treatment not carried out due to patient leaving prior to being seen by health care provider; Z91.19 Patient's noncompliance with other medical treatment and regimen; Z82.49 Family history of ischemic heart disease and other diseases of the circulatory system
CPT/HCPCS: 36415; 71045; 80053; 80307; 84439; 84443; 85025; 90471; 90756; 97110; 97116; 99285-25; G0479; Q2035